=== PATIENT | male | born 1950 | race Caucasian/White ===

== ENCOUNTER 2023-11-24 10:47 | Emergency (ER) | payer MEDICARE, SELFPAY ==
[2023-11-24] VITALS (20 sets, daily range): BP systolic 139–162; BP diastolic 81–103; PULSE 54–92; RESP 13–20; TEMP 36.7–37.2; O2SAT 94–98
[2023-11-24 12:38] LABS: Abs Immature Grans 0.04 10^3/uL (0.0-0.06); Absolute Basophil Count 0.05 10^3/uL (0.0-0.2); Absolute Eosinophil Count 0.11 10^3/uL (0.0-0.7); Absolute Lymphocyte Count 1.26 10^3/uL (1.2-3.4); Absolute Monocyte Count 0.48 10^3/uL (0.1-0.8); Absolute Neutrophil Count 3.69 10^3/uL (1.2-6.7); Basophils % 0.9 %; HCT 40.8 % (40.0-50.0); Immature Grans % 0.7 %; Lymphocytes % 22.4 %; MCH 31.4 pg (27.0-33.0); MCHC 34.3 % (32.0-36.0); MCV 92 fL (80-95); MPV 8.9 fL (8.0-11.0); Monocytes % 8.5 %; Neutrophils % 65.5 %; Platelet Count 169 10^3/uL (130-400); RBC 4.46 10^6/uL (4.36-5.78); RDW 11.8 % (11.8-14.1); RDW-SD 39.6 fL; WBC 5.63 10^3/uL (4.4-10.8)
[2023-11-24] MEDS: Normal Saline 1,000 ML 1000 ML IV (12:48)
[2023-11-24 12:53] LABS: ALT 72 U/L (16-63); AST 56 U/L (15-37); Albumin 3.8 g/dL (3.4-5.0); Alkaline Phosphatase 49 U/L (46-116); BUN 17 mg/dL (7-18); Bilirubin, Total 0.51 mg/dL (0.2-1.0); Calcium 10.5 mg/dL (8.5-10.1); Chloride 105 mmol/L (98-107); Estimated GFR 80.47 (mL/min/1.73m2); Glucose 100 mg/dL (74-106); Lipase 64 U/L (16-77); Magnesium 1.7 mg/dL (1.8-2.4); PHOSPHORUS 2.6 mg/dL (2.6-4.7); Potassium 3.9 mmol/L (3.5-5.1); Sodium 139 mmol/L (136-145); Total Protein 6.9 g/dL (6.4-8.2)
--- NOTE | 2023-11-24 12:54 | ED.GENADUL_ITS ---
Discharge Plan Disposition Patient Disposition: Home Discharge Details Clinical Impression: Hypercalcemia Primary Care Provider: Unknown,Unknown ED Provider: Inocencio Burk Discharge Instructions Instructions: Hypercalcemia (DC) Additional Instructions: Please continue to hold off on any further vitamin D supplementation and stay well-hydrated. Otherwise at this time there are no obvious other sources for your high calcium. You will need to have this rechecked by your primary care preferably next week to ensure that levels are continuing to decrease. If you have any new or significant worsening of symptoms or any further concerns feel free to return for reassessment Referrals: Primary Care Provider [Outside] - 1 week HPI General Mode of arrival: ambulatory . Date/Time Provider Initiated Documentation: 11/24/23 11:50 . Limitations to Documentation: no limitations . Information obtained by: patient and RN notes reviewed . History of Present Illness 73 year old M presents to the emergency department with the chief complaint of Abnormal lab values, described as mild (Denies any symptoms), Patient started experiencing this unknown Patient notes no other symptoms.. Patient did receive the following treatments prior to arrival, none Related Data Allergies Allergy/AdvReac Type Severity Reaction Status Date / Time No Known Allergies Allergy Unverified 11/24/23 12:41 General Stated Complaint: GenMedical NAS: 3 Review of Systems Constitutional Constitutional: Denies weakness Cardiovascular Cardiovascular: Denies chest pain and Denies dyspnea Respiratory Respiratory: Denies dyspnea Gastrointestinal Gastrointestinal: Denies abdominal pain, Denies nausea and Denies vomiting Musculoskeletal Musculoskeletal: Denies muscle cramps and Denies tingling Neurologic Neurologic: Denies tingling and Denies weakness Exam Const General: cooperative, no acute distress and not ill appearing Orientation: alert, awake and oriented x3 HENIN Mouth: moist mucous membranes Resp Effort & Inspection: normal respiratory effort, able to speak in complete sentences and no respiratory distress Auscultation: clear to auscultation bilaterally Cardio Rate: regular rate Rhythm: regular rhythm Heart Sounds: S1 normal and S2 normal Skin General skin exam: no rashes or lesions noted Neuro General: patient alert, patient awake, patient oriented x3, moves all extremities and no focal motor deficits Sensory Exam: no sensory deficits noted Course Vital Signs Vital signs: Vital Signs Temperature 37.1 C 11/24/23 11:00 Pulse 92 H 11/24/23 11:00 Respiratory Rate 18 11/24/23 11:00 Blood Pressure 152/103 H 11/24/23 11:00 Pulse Oximetry 98 11/24/23 11:00 Temperature 37.2 C 11/24/23 12:46 Temperature Source Temporal Artery Scan 11/24/23 12:46 Pulse 63 11/24/23 12:46 Respiratory Rate 16 11/24/23 12:46 Respiratory Effort Normal, Non-Labored 11/24/23 12:45 Respiratory Depth Normal 11/24/23 12:45 Respiratory Pattern Normal 11/24/23 12:45 Blood Pressure 160/90 H 11/24/23 12:46 Blood Pressure Position Sitting 11/24/23 11:00 Pulse Oximetry 94 11/24/23 12:46 Oxygen Delivery Method Room Air 11/24/23 12:46 Oxygen Flow Rate 0 11/24/23 11:00 Lab/Test Results Lab/Test Results: Laboratory Tests Range/Units 11/24/23 12:28 WBC (4.4-10.8) 10^3/uL 5.63 RBC (4.36-5.78) 10^6/uL 4.46 Hgb (13.5-17.5) g/dL 14.0 Hct (40.0-50.0) % 40.8 MCV (80-95) fL 92 MCH (27.0-33.0) pg 31.4 MCHC (32.0-36.0) % 34.3 RDW (11.8-14.1) % 11.8 Plt Count (130-400) 10^3/uL 169 MPV (8.0-11.0) fL 8.9 Immature Gran % % 0.7 Neutrophils % % 65.5 Lymphocytes % % 22.4 Monocytes % % 8.5 Eosinophils % % 2.0 Basophils % % 0.9 Nucleated RBC % (0.0-0.3) % 0.0 Absolute Neutrophils (1.2-6.7) 10^3/uL 3.69 Absolute Lymphocytes (1.2-3.4) 10^3/uL 1.26 Absolute Monocytes (0.1-0.8) 10^3/uL 0.48 Absolute Eosinophils (0.0-0.7) 10^3/uL 0.11 Absolute Basophils (0.0-0.2) 10^3/uL 0.05 Medical Decision Making Patient presenting to the emergency department for chief complaint of abnormal labs. Patient states that he was contacted by his primary care office today for labs that he had done on Monday and was informed his calcium was critically high and that he needed to come to the emergency department. Patient states that he is asymptomatic and is feeling fine otherwise denies any acute changes in medical condition. Patient does state that he was on vitamin D supplementation for a while but stopped otherwise no other changes to medications. Physical exam is noncontributory. Will plan on rechecking patient's labs. Patient is slightly hypertensive but he does admit he is fairly anxious and worried about the results called by primary care. Patient does report that he does not hydrate well so we will give 1 L of IV fluids pending results. Reviewed labs and also triage report that was called into us with patient having a calcium in the office earlier this week of 11.6. Today calcium is 10.5 CBC is unremarkable, magnesium slightly low at 1.7 which will give oral replacement, slight elevation of AST and ALT otherwise all other labs within normal range. Will recommend patient to stay hydrated, to continue to hold on any further vitamin D supplementation until vitamin D levels are checked by primary care and to return to the emergency department for any new or significant worsening of symptoms. After discussion of diagnosis and plan of care patient has no further needs, questions, or concerns and states clear understanding to return to the emergency department for any worsening symptoms. This documentation was generated using [employer] dictation system, please disregard any oddities of phrase or misspellings. Lab Data Lab results reviewed: Yes I reviewed the patient's lab results. Quality:SDOH Health Related Social Needs: No Data to Display PFSH All Active Problems (Updated 11/24/23 @ 13:07 by Inocencio Burk NP) Hypercalcemia (Acute) Chronic left hip pain (Acute) High cholesterol (Chronic) Social History Smoking/Tobacco Use Status: Former Tobacco Use Smoking risk assessment performed?: Yes Alcohol Intake: former Substance use type: does not use Housing: house Do you feel safe at home: Yes Do you feel safe in your relationship?: Yes
[2023-11-24] MEDS: Magnesium Oxide 400 MG TAB PO (13:50)
== END 2023-11-24 13:57 | disposition home or self-care (01) ==
PROVIDERS: Emergency Provider Nurse Practitioner Family
DX: E83.52 Hypercalcemia (principal)
CPT/HCPCS: 36415; 80053; 83690; 96360; 99284; 83735; 84100; 85025; 99283